=== PATIENT | male | born 1955 | race Caucasian/White ===

== ENCOUNTER 2018-10-15 20:00 | Emergency (ER) | payer SELFPAY ==
[~2018-10-15] VITALS: Ht 154.9 cm; Wt 73.0 kg
[2018-10-15 20:10] VITALS: BP 134/82
--- NOTE | 2018-10-15 20:23 | NUR ---
EKG PERFORMED IN TRIAGE ROOM WITH TRIAGE NURSE AND FAMILY MEMBER PRESENT
[2018-10-15 20:53] LABS: BASOPHILS # (AUTO) 0.1 K/uL (0.00-0.22); BASOPHILS % (AUTO) 0.8 % (0.0-2.0); EOSINOPHILS # (AUTO) 0.1 K/uL (0-0.4); HEMATOCRIT 46.4 % (36-52); HEMOGLOBIN 15.6 g/dL (12.0-18.0); LYMPHOCYTES # (AUTO) 1.8 K/uL (2.0-11.5); LYMPHOCYTES % (AUTO) 25.4 % (20.5-51.1); MEAN CORPUSCULAR HEMOGLOBIN 32 pg (27-31); MEAN CORPUSCULAR HGB CONC 34 g/dL (33-37); MEAN CORPUSCULAR VOLUME 94.5 fL (80-94); MONOCYTES # (AUTO) 0.5 K/uL (0.8-1.0); MONOCYTES % (AUTO) 7.6 % (1.7-9.3); NEUTROPHILS # (AUTO) 4.6 K/uL (1.8-7.7); NEUTROPHILS % (AUTO) 65.2 % (42.2-75.2); PLATELET COUNT (AUTO) 189 K/uL (140-450); RED BLOOD CELL COUNT(AUTO) 4.91 MIL/uL (4.20-6.10); RED CELL DISTRIBUTION WIDTH 13.1 % (11.6-13.7); WHITE BLOOD COUNT (AUTO) 7.1 K/uL (4.8-10.8)
--- NOTE | 2018-10-15 20:58 | NUR ---
PT TAKEN TO [facility] FROM [facility]
[2018-10-15 21:02] LABS: ANION GAP 9.9 (8-16); CARBON DIOXIDE 30.6 mmol/L (21-32); POTASSIUM 4.5 mmol/L (3.5-5.1)
[2018-10-15 21:11] LABS: ALBUMIN 3.8 g/dL (3.4-5.0); TOTAL BILIRUBIN 0.5 mg/dL (0.0-1.0)
--- NOTE | 2018-10-15 22:10 | NUR ---
PT TO BED 5.
--- NOTE | 2018-10-15 22:35 | NUR ---
PT BIB SELF C/O CHEST PAIN X1 MONTH. PT STATES HE FEELS CHEST PAIN, DESCRIBED PRESSURE X1 MONTH, AND FACIAL "FEELS COLD, CANT FEEL MY FACE SOMETIMES". PT STATES 3/10 PAIN. +NAUSEA SINCE 1800. --SPEECH CLEAR, CAP REFIL <3; SKIN WARM, DRY AND INTACT, NON-TENTING. MOIST MUCOUS MEMBRANE. DENIES V/D. BREATHING EQUAL AND UNLABORED; LUNG SOUNDS CLEAR BL. BOWEL SOUNDS ACTIVE X4 QUAD. DENIES SOB. 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 ER MD MADE AWARE OF PT STATUS. PMH: DENIES RX: DENIES
--- NOTE | 2018-10-15 23:07 | NUR ---
Dr. Leyva evaluating patient at bedside.
[2018-10-15 23:25] VITALS: BP 116/75
--- NOTE | 2018-10-15 23:25 | NUR ---
Patient discharged with v/s stable. Written and verbal after care instructions given and explained. Patient alert, oriented and verbalized understanding of instructions. Ambulatory with steady gait. All questions addressed prior to discharge. ID band removed. Patient advised to follow up with PMD. Rx of PREDNISONE AND ZOFRAN given. Patient educated on indication of medication including possible reaction and side effects. Opportunity to ask questions provided and answered.
== END 2018-10-15 23:25 | disposition home or self-care (01) ==
LOC: MED 20:00
DX: R07.89 Other chest pain (principal); R11.2 Nausea with vomiting, unspecified; R05 Cough; R51 Headache; F17.210 Nicotine dependence, cigarettes, uncomplicated
CPT/HCPCS: 36415; 71045; 80053; 83880; 84484; 85025; 93005; 99284